=== PATIENT | male | born 1940 | race Caucasian/White ===

== ENCOUNTER 2018-09-10 10:05 | Inpatient (IN) ==
[2018-09-10] MEDS ORDERED: Acetaminophen 325 MG TABLET PO PRN (13:43)
[2018-09-10] MEDS ORDERED: *HR* HYDROcodone/Acet 5/325 mg TABLET PO PRN (13:43)
[2018-09-10] MEDS ORDERED: Naloxone 0.4 MG/ML INJ IVP PRN (13:43)
[2018-09-10] MEDS: *HR* OxyCODONE Immed Rel 5 MG TABLET PO PRN ×2 (14:03→19:50)
--- NOTE | 2018-09-10 15:29 | Orthopedic Consult Note ---
Date of Encounter: 09/10/18 Time of Encounter: 15:00 Assessment and Plan (1) Dislocation of left shoulder joint Current Visit: Yes Status: Acute Patient had significant trauma to left shoulder; with recurrent left shoulder dislocation, s/p Left shoulder closed reduction with Both conservative and surgical options discussed. Both risks and benefits of both discussed. Ultimately, without surgical intervention; patient would likely have recurrent shoulder instability. Patient would like to proceed with surgical treatment Plan for OR with - MONDAY, No - Left Total shoulder reverse ball and socket. Consent reviewed and discussed with patient; patient signed. Risks and benefits discussed. Hospitalist for pre-op risk stratification. NPO after midnight CHG bathe [employer]. Qualifiers: Encounter type: initial encounter Qualified Code(s): S43.005A - Unspecified dislocation of left shoulder joint, initial encounter History of Present Illness Chief complaint: Left Recurrent shoulder dislocation HPI: Mr. Hill is a 78 year old male, transferred from [facility] for recurrent left shoulder dislocation. Patient fell approx 1 week ago, was seen in [facility] by , who as able to do a closed reduction under light sedation, with successful reduction of shoulder joint. Today, he presented to [facility] ED for worsening of left shoulder pain. XRAYS reviewed recurrent dislocated left shoulder. He denies N/T, denies radiation of pain, or forearm pain. Pain 8/10, along deltoid and anterior shoulder. Obvious deformity noted. No ecchymosis, erythema or abrasions. No repeat trauma or falls. No new symptoms. Exam: Left shoulder Obvious deformity noted; no ecchymosis, erythema or abrasion. No warmth Tenderness to anterior shoulder, sensation intact. Deltoid atrophy noted. ROM limited at shoulder; elbow ROM intact, hand and wrist ROM intact; digital ROM intact. 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 Past Med Surg Social Fam HX - Past Medical History Medical history: CVA, GERD, hypertension - Past Surgical History Additional surgical history: 09/04/18ROTATOR CUFF SURGERY. PREVIOUS DISLOCATION OF LEFT SHOULDER 09/04/18 - Social History Smoking Status: Never smoker Smokeless Tobacco Status: No Alcohol use: none Drug use: none - Family History Mother Hx Family Cardiac Disorders: Yes Hx Family Endocrine Disorder: Yes Medications and Allergies Aspirin 81 mg PO DAILY 09/10/18 [History] Atorvastatin [Lipitor] 40 mg PO HS 09/10/18 [History] Clopidogrel [Plavix] 75 mg PO DAILY 09/10/18 [History] Cyanocobalamin (Vitamin B-12) [Vitamin B12] 1,000 mcg PO DAILY 09/10/18 [History] raNITIdine HCl [Ranitidine HCl] 300 mg PO DAILY 09/10/18 [History] Allergy/AdvReac Type Severity Reaction Status Date / Time No Known Drug Allergies AdvReac none Verified 09/10/18 12:59 All Systems Reviewed: The remainder of the systems were reviewed and are negative - Constitutional Constitutional: as per HPI, weakness, no fever(s), no frequent falls, no headache(s) - Cardiovascular Cardiovascular: no chest pain, no syncope - Musculoskeletal Musculoskeletal: as per HPI, limited range of motion, no abnormal gait, no joint swelling, no numbness, no radiating pain into limb, no tingling Physical Exam - Constitutional Vitals: Temp Pulse Resp BP Pulse Ox 97.7 F 85 15 152/97 95 09/10/18 12:43 09/10/18 12:43 09/10/18 12:43 09/10/18 12:43 09/10/18 12:43 General appearance IM: mild distress, A&O X 3, answers questions appropriately Results - Labs Result Diagrams: 09/11/18 06:10 09/11/18 06:10 Labs: All other labs normal. - Diagnostic results Shoulder x-ray: report reviewed, image reviewed Consult Discharge Plan - Plan Referrals: Ange Canela MD [Primary Care Provider] -
--- NOTE | 2018-09-10 15:51 | Internal Med History&Physical ---
Date of Encounter: 09/10/18 Time of Encounter: 15:51 Internal Medicine - H&P: HPI Chief complaint: Left shoulder dislocation Admitted From: Emergency Dept Plans for Post Hospital Care: Home History of present illness: Mr. Hill is a 78 year old male patient with history of hypertension, hyperlipidemia, prior stroke who presented to the ER at [place] with complaints of acute left shoulder dislocation. His symptoms again early this morning when he rolled in his bed. He had fallen last week while walking his dog and had dislocated his shoulder. After failed attempts to put it in place in the ER, patient was taken to the or and closed reduction was successful then. He was discharged home and has been doing well until his episode this morning. Patient reports intense pain in his left shoulder. With decreased range of motion. No weakness or numbness. Patient has previously undergone shoulder repair/rotator cuff surgery several years back on the left shoulder. At baseline, patient is able to ambulate for a blocked easily. He does get short of breath when he climbs a flight of stairs. Does have chronic right lower extremity edema. Denies any orthopnea or PND. No chest pain. Past Med Surg Social Fam HX - Past Medical History Attestation: Yes The following information was validated with the patient. Source: patient Medical history: CVA, GERD, hypertension - Past Surgical History Additional surgical history: 09/04/18ROTATOR CUFF SURGERY. PREVIOUS DISLOCATION OF LEFT SHOULDER 09/04/18 - Social History Smoking Status: Never smoker Smokeless Tobacco Status: No Alcohol use: none Drug use: none - Family History Mother Hx Family Cardiac Disorders: Yes Hx Family Endocrine Disorder: Yes Internal Medicine - H&P: Meds Allergy/AdvReac Type Severity Reaction Status Date / Time No Known Drug Allergies AdvReac none Verified 09/10/18 12:59 All Systems PM: A 10-system review of systems was performed and is negative for pertinent findings except as documented above in the HPI. - Constitutional Constitutional: no chills, no fever(s), no night sweats - EENT Eyes: no change in vision, no discharge, no pain, no photophobia Ears: no ear discharge, no ear pain, no tinnitus Nose, mouth and throat: no dysphagia, no nasal discharge, no neck pain, no sore throat - Cardiovascular Cardiovascular ROS IM: no chest pain, no diaphoresis, no dyspnea, no lightheadedness, no palpitations, no syncope - Respiratory Respiratory: no cough, no dyspnea, no wheezing, no excessive phlegm production - Gastrointestinal Gastrointestinal: no abdominal pain, no diarrhea, no hematemesis, no hematochezia, no melena, no nausea, no vomiting - Musculoskeletal Musculoskeletal ROS IM: other (left shoulder pain), no numbness, no tingling - Integumentary Integumentary IM: no rash, no unusual bruising - Neurological Neurological ROS: no confusion, no convulsions, no focal weakness, no numbness, no tingling, no tremor(s) - Hematologic/Lymphatic Hematologic/Lymphatic: no easy bruising - Constitutional Vitals: Temp Pulse Resp BP Pulse Ox 97.7 F 85 15 152/97 95 09/10/18 12:43 09/10/18 12:43 09/10/18 12:43 09/10/18 12:43 09/10/18 12:43 General appearance: Present: cooperative, A&O X 3, pleasant, answers questions appropriately Exam: moderate distress due to pain - Eye Eye exam: Present: EOMI, PERRL, conjuntiva pink, sclera anicteric - Neck Neck exam general surgery: Present: supple, trachea midline. Absent: lymphadenopathy - Respiratory Respiratory exam: Present: CTAB. Absent: accessory muscle use, rales, rhonchi, wheezes - Cardiovascular Cardiovascular exam: Present: RRR, +S1, +S2. Absent: diastolic murmur, gallop, rubs, systolic murmur - GI/Abdominal GI/Abdominal exam: Present: normal bowel sounds, soft, no peritoneal signs. Absent: distended, tenderness - Extremities Exam Extremities exam: Present: tenderness (left shoulder pain and decreased range of motion.), warm, radial pulses palpable and symmetrical. Absent: calf tenderness, cyanotic, pedal edema - Neurological Exam Neurological exam: Present: alert, oriented X3, no focal deficits. Absent: facial droop, speech deficit - Skin Skin exam: Present: dry, intact - Assessment and plan (1) Dislocation of left shoulder joint Current Visit: Yes Status: Acute Assessment and plan: Acute left shoulder dislocation. Following closed reduction last week. Will most likely need surgical management at this time. Consult orthopedic surgery. Patient is at low to intermediate risk for complications from surgery. Will obtain EKG and chest x-ray. Qualifiers: Encounter type: initial encounter Qualified Code(s): S43.005A - Unspecified dislocation of left shoulder joint, initial encounter (2) Essential hypertension Current Visit: Yes Status: Chronic Assessment and plan: Continue home medications. Monitor blood pressure closely. (3) Hyperlipidemia Current Visit: Yes Status: Chronic Assessment and plan: Continue statin. Qualifiers: Hyperlipidemia type: mixed hyperlipidemia Qualified Code(s): E78.2 - Mixed hyperlipidemia - Time Spent With Patient Total time spent is greater than 50% in coordination of care (as documented) at patient's floor/unit and/or counseling patient:
[2018-09-10 16:18] LABS: Basophils % 0.4 %; Eosinophils % 0.1 %; Hematocrit 43.2 % (37.5-50.1); Hemoglobin 14.6 g/dL (12.9-16.9); Immature Granulocytes % 0.4 % (0-4); Lymphocytes # 0.9 K/mcL (0.6-4.6); Lymphocytes % 9.2 %; Mean Corpuscular HGB Conc 33.8 g/dL (31.6-35.5); Mean Corpuscular Hemoglobin 30.7 pg (28.0-33.3); Mean Corpuscular Volume 90.8 fL (83.0-100.0); Monocytes # 0.4 K/mcL (0.0-1.3); Monocytes % 4.1 %; Neutrophils # 8.3 K/mcL (1.6-8.9); Platelet Count 238 K/mcL (140-400); Red Blood Count 4.76 M/mcL (4.19-5.50); Segmented Neutrophils % 85.8 %
[2018-09-10 16:37] LABS: BUN/Creatinine Ratio 20 (6-26); Blood Urea Nitrogen 19 mg/dL (8-23); Calcium 9.2 mg/dL (8.6-10.3); Carbon Dioxide 25 mEq/L (23-29); Chloride 105 mEq/L (98-107); Glucose 161 mg/dL (70-105); Osmolality,Calculated 292 (280-300); Potassium 4.3 mEq/L (3.5-5.1); Sodium 138 mEq/L (136-145); eGFR For Non-African Americans > 60 (> 60)
[2018-09-10 17:03] LABS: INR 1.2; Prothrombin Time 13.3 Seconds (9.4-12.1)
--- NOTE | 2018-09-10 19:07 | Anesthesia Evaluation PreOp ---
Date of Encounter: 09/10/18 Time of Encounter: 21:27 - Past History Planned Operation: Left total shoulder (left shoulder dislocation) Cardiac History: HTN, Hyperlipidemia Pulmonary History: Denies Any Significant HX ADDRESSER History: CVA (occurred in 2017; residual memory deficits; no motor deficits) Other Medical History: GERD Anesthesia History: Past Anesthesia (left shoulder (long time ago), hip surgery, hernia repair, prostate surgery), Problems (unable to urinate after one of his surgeries) Alcohol Use: none Drug use: none Medications and Allergies Aspirin 81 mg PO DAILY 09/10/18 [History] Atorvastatin [Lipitor] 40 mg PO HS 09/10/18 [History] Clopidogrel [Plavix] 75 mg PO DAILY 09/10/18 [History] Cyanocobalamin (Vitamin B-12) [Vitamin B12] 1,000 mcg PO DAILY 09/10/18 [H istory] raNITIdine HCl [Ranitidine HCl] 300 mg PO DAILY 09/10/18 [History] Allergy/AdvReac Type Severity Reaction Status Date / Time No Known Drug Allergies AdvReac none Verified 09/10/18 12:59 - Meds/Allergy Pre-op Review Medications Reviewed: Yes Allergies Reviewed: Yes Beta Blockers on Current Med List: No Anesthesia Results - Labs 09/10/18 16:04 09/10/18 16:04 Anesthesia Exam Last Vital Signs Temp 98.3 F 09/10/18 18:44 Pulse 81 09/10/18 18:44 Resp 17 09/10/18 18:44 BP 131/86 09/10/18 18:44 Pulse Ox 91 09/10/18 18:44 Weight: 108 kg - HEENT Pupil (Motor): Pupils equal, EOMI Mallampati: II Teeth: Missing Denture Type: Upper: Complete Oral Opening: Greater than 3 - ADDRESSER LOC: Oriented - Cardiac Rhythm: Regular Murmur: None - Pulmonary Breath Sounds: bilateral Clear Respiratory Effort: Symmetrical Anesthesia Assess/Plan ASA Score: 2 Level of consciousness: Cooperative Anesthetic Plan: General, Regional Nerve Block Regional Nerve Block Plan: Supraclavicular Monitoring Plan: Standard Monitors Recovery Plan: PACU
[2018-09-11 06:25] LABS: Basophils % 0.5 %; Eosinophils # 0.2 K/mcL (0.0-0.6); Eosinophils % 2.4 %; Hematocrit 46.4 % (37.5-50.1); Hemoglobin 15.2 g/dL (12.9-16.9); Immature Granulocytes % 0.4 % (0-4); Lymphocytes # 0.9 K/mcL (0.6-4.6); Lymphocytes % 12.5 %; Mean Corpuscular HGB Conc 32.8 g/dL (31.6-35.5); Mean Corpuscular Hemoglobin 30.6 pg (28.0-33.3); Mean Corpuscular Volume 93.4 fL (83.0-100.0); Monocytes # 0.5 K/mcL (0.0-1.3); Monocytes % 6.4 %; Neutrophils # 5.8 K/mcL (1.6-8.9); Platelet Count 170 K/mcL (140-400); Red Blood Count 4.97 M/mcL (4.19-5.50); Red Cell Distribution Width 13.2 % (11.5-14.5); Segmented Neutrophils % 77.8 %
[2018-09-11] MEDS: *HR* OxyCODONE Immed Rel 5 MG TABLET PO PRN (06:37)
[2018-09-11 06:44] LABS: BUN/Creatinine Ratio 18 (6-26); Blood Urea Nitrogen 17 mg/dL (8-23); Calcium 9.3 mg/dL (8.6-10.3); Carbon Dioxide 23 mEq/L (23-29); Chloride 106 mEq/L (98-107); Glucose 105 mg/dL (70-105); Osmolality,Calculated 288 (280-300); Potassium 4.4 mEq/L (3.5-5.1); Sodium 138 mEq/L (136-145); eGFR For Non-African Americans > 60 (> 60)
[2018-09-11 07:14] LABS: Platelet Estimate Normal (Normal)
--- NOTE | 2018-09-11 08:11 | Orthopedics Progress Note ---
Date of Encounter: 09/11/18 Time of Encounter: 08:10 Subjective Interval history: Patient seen this morning, status post closed reduction of left shoulder dislocation last week. Patient required reduction in the operating room. Patient redislocated shoulder yesterday patient is admitted for definitive management. Based on the patient's diagnosis age recurrent instability recommendations for reverse shoulder replacement. Social situation. We reviewed the risks and bene fits as well as recovery. All questions were answered. The patient agreed to this treatment plan and acknowledged an understanding of the treatment plan as described. Objective Vital signs: Vital Signs Temp Pulse Resp BP Pulse Ox 09/11/18 07:13 97.7 F 84 14 156/103 95 09/11/18 04:22 98.4 F 69 16 126/77 92 09/10/18 23:05 98.3 F 71 17 133/83 91 09/10/18 18:44 98.3 F 81 17 131/86 91 09/10/18 12:43 97.7 F 85 15 152/97 95 Intake and Output 09/10/18 09/11/18 09/11/18 23:59 07:59 15:59 Intake Total 240 / 240 Balance 240 / 240 Intake: Oral 240 / 240 Other: Meal Dinner Percent of Meal Consumed 85% Weight 107.7 kg Patient Weight 09/11/18 23:59 Weight 107.7 kg - Labs CBC & BMP: 09/11/18 06:10 09/11/18 06:10 Labs: Abnormal lab results PT 13.3 Seconds (9.4-12.1) H 09/10/18 15:05 Consult Discharge Plan - Plan Referrals: Ange Canela MD [Primary Care Provider] -
[2018-09-11] MEDS ORDERED: CeFAZolin Syr 2,000MG/20 ML 2,000 MG/20 ML SYRINGE IVPB ONE (10:51)
[2018-09-11] MEDS ORDERED: ROPIVACAINE HCL/PF 0.5% 30 ML VIAL ONE (11:11)
[2018-09-11] MEDS ORDERED: Bupivacaine-MPF 0.25% 10 ML VIAL ONE (11:11)
[2018-09-11] MEDS ORDERED: Ethanol\\Acetic Acid\\Na Ace\\Ben 1,000 ML IRRIG.SOLN IR ONE (11:38)
[2018-09-11] MEDS ORDERED: EPHEDrine 50 MG/ML VIAL ONE (12:35)
[2018-09-11] MEDS ORDERED: Lidocaine -MPF 4% 5 ML AMPUL ONE ×2 (12:35→13:30)
[2018-09-11] MEDS ORDERED: Ondansetron 4 MG/2 ML VIAL ONE (12:35)
[2018-09-11] MEDS ORDERED: *HR* Succinylcholine 200 MG/10 ML VIAL IVP ONE ×3 (12:35→13:30)
[2018-09-11] MEDS ORDERED: Dexamethasone 4 MG/ML VIAL ONE (12:35)
[2018-09-11] MEDS ORDERED: *HR* FentaNYL (PF) 100 MCG/2 ML VIAL ONE ×2 (12:35)
[2018-09-11] MEDS ORDERED: Lidocaine -MPF 2% 2 ML VIAL ONE (12:35)
[2018-09-11] MEDS ORDERED: *HR* Propofol 200 MG/20 ML VIAL IVP ONE (12:35)
--- NOTE | 2018-09-11 12:38 | Anesthesia Procedures ---
Date of Encounter: 09/11/18 Time of Encounter: 11:30 Procedures: Anesthesia - Nerve Block Procedure Date: 09/11/18 Time: 11:30 Allergies/Adv Reactions: nka Surgical Procedure: left reverse tsr Checklist: Correct Patient Identifier, Correct procedure, History checked Correct side: Left Blood Thinner: No Monitor Applied: EKG, BP, Pulse Oximetry Supplemental Oxygen via Nasal Cannula (L/min): 2 Sedation: Fentanyl (mcg): 100 Indication: Post Op Analgesia (per dr. soto) Pre-op Neuro Deficits: No Block Type: Supraclavicular, Other (scp, icb) Catheter placed: No Sterile Technique: Yes Ultrasound used: Yes Anatomy identified: Yes Visual spread of Local: Yes Neuro Stimulation: No Blood on Needle Aspiration: No Smooth Injection of Local: Yes Pain with Injection of Local: No Prep: Chlorhexadine Needle: 22 x 50 mm Stimuplex Local: Ropivacaine (30cc 0.5% with 8mg decadron for suprclav), Other (5/5 cc 0.25% bupivicaine for scp, icb with 2/2 mg decadron) Volume (cc): 30, 5, 5 Number of Attempts: 1 Complications: None/effective block Vitals: Vital Signs/O2 Sat/Glucose, Most Recent Temp Pulse Resp BP Pulse Ox 97.7 F 81 14 144/95 96 09/11/18 07:13 09/11/18 11:48 09/11/18 07:13 09/11/18 11:48 09/11/18 11:48 Comments: [facility]
--- NOTE | 2018-09-11 12:55 | Orthopedic Operative Note ---
Date of procedure: 09/11/18 Pre-op diagnosis: Recurrent dislocation left shoulder Post-op diagnosis: same Procedure: Procedure: Total Shoulder Replacment Reverse, left Estimated blood loss: 100 cc Hardware: Metal and polyethylene replacement: Arthrex 28, +4 , 35 mm screw glenoid baseplate, 4 locking 5.5 screw, 42+4 glenosphere, 12 apex humeral stem, poly insert 6 metal 3 Angelic Exam Under anesthesia: Shoulder was dislocated easily reducible persistently unstable Procedural Notes: Massive rotator cuff tear Operative procedure: The patient was brought to the operating room and placed on the operating room table. After general anesthesia was administered the operative shoulder was examined. Findings were noted. The patient was placed in the modified beachchair position. All pressure points were padded appropriately. And the head was stabilized in the neutral position. The operative extremity was prepped and draped in the sterile surgical fashion. The patient received IV antibiotics prior to skin incision. A standard deltopectoral approach was made to the operative shoulder. Incision was made to the skin and subcutaneous tissue,hemo stasis was obtained with Bovie cautery. Using careful blunt dissection the cephalic vein was identified and mobilized medially. The deltopectoral interval was developed and the clavipectoral fascia was incised. The subscap was released off the lesser tuberosity and tagged with #2 FiberWire suture subscap irreparable. The humerus was dislocated patient noted to have irreparable tear supraspinatus tendon, and the humeral cut was made along the anatomic neck. Anterior and posterior Bankart retractors were placed to expose the glenoid. The glenoid guide was seated and the centering hole was made. It was reamed with the appropriate reamer. The 28, +4, 35 mm screw, baseplate was seated and secured with 4 l ocking 5.5 screw. The baseplate was irrigated and dried and the 42+4 Glenosphere was seated and secured with the Weston taper. The Weston taper was tested and found to be secure, glenosphere fixation was secondarily secured with the central screw. The humerus was and prepared with the diaphyseal reamers, followed by a broaching process up to the appropriate size 12 apex in the patient's anatomic version. The metaphyseal reamer was then utilized. Trial reduction found the shoulder to be relocatable. Trial components were removed and 12 apex stem was impacted in place in the patient's anatomic version. Trial reduction found the shoulder to be relocatable and stable with the appropriate 6 metal 3 poly . Trial component was removed and the real implant was seated and secured the shoulder was reduced. The shoulder had excellent motion and excellent stability and no evidence of dislocation. The deep tissue was irrigated with pulse irrigation. The PA close the shoulder. The deltopectoral interval was closed with a running #1 PDS suture, subcutaneous tissue was irrigated and closed with 0 PDS suture, the skin was closed with Dermabond. The patient was placed in a sterile dressing, abduction brace and extubated. The patient was then transferred to the recovery room in stable condition. Anesthesia: GETA Surgeon: Amrik Callaway Was there an accounts payable assistant present: No (Physical examination) Estimated blood loss (cc): 100 Condition: stable Disposition: PACU
[2018-09-11 13:53] LABS: Hematocrit 42.2 % (37.5-50.1); Hemoglobin 13.9 g/dL (12.9-16.9)
--- NOTE | 2018-09-11 13:53 | Anesthesia Evaluation Post Op ---
Date of Encounter: 09/11/18 Time of Encounter: 13:52 - Vital Signs Vital Signs: Vital Signs/O2 Sat/Glucose, Most Recent Temp Pulse Resp BP Pulse Ox 98.6 F 88 16 136/92 94 09/11/18 13:40 09/11/18 13:40 09/11/18 13:40 09/11/18 13:40 09/11/18 13:40 - Lungs Lungs: Clear Ascult./Percussion - Airway Airway: Non-obstructed - Cardiovascular Regular Rate - Mental Status Mental Status: Alert & Oriented, Answers Appropriately - Pain Pain Scale: 0 - Nausea Vomiting Nausea Vomiting: Not Present - Hydration Hydration: Tolerates oral liquids - Discharge PostOp Status: Transfer Patient to floor
[2018-09-11] MEDS ORDERED: Ondansetron 4 MG/2 ML VIAL IVP PRN (14:14)
[2018-09-11] MEDS ORDERED: Sennosides 8.6 MG TABLET PO PRN (14:14)
[2018-09-11] MEDS ORDERED: traMADol 50 MG TABLET PO PRN (14:14)
[2018-09-11] MEDS ORDERED: MOM Conc 10 ML UD.LIQ PO PRN (14:14)
[2018-09-11] MEDS ORDERED: Temazepam 15 MG CAPSULE PO PRN (14:14)
[2018-09-11] MEDS ORDERED: Ringers Solution, Lactated 1,000 ML IVC SCH (14:14)
[2018-09-11] MEDS ORDERED: Naloxone 0.4 MG/ML INJ IVP PRN (14:14)
--- NOTE | 2018-09-11 14:37 | Internal Med Progress Note ---
Hospitalist Progress Note - Encounter Date of Encounter: 09/11/18 Time of Encounter: 09:40 - Subjective Interval History: Patient lying down in bed. Comfortable. Pain in his left shoulder is fairly controlled. Denies any chest pain or palpitations. No nausea or vomiting. Has been nothing by mouth for surgery scheduled today. - Exam Vitals: Temp Pulse Resp BP Pulse Ox 98.6 F 95 16 133/88 94 09/11/18 13:50 09/11/18 13:50 09/11/18 13:50 09/11/18 13:50 09/11/18 13:50 Exam: General: Patient is alert, no acute distress, oriented x 3 ENT: Mucous membranes moist Respiratory: Good respiratory effort. Normal breath sounds. No wheezing or crackles. Cardiovascular: Regular rate and rhythm. s1 and s2 normal No clicks, rubs, gallops, or murmurs. No pedal edema Abdomen: Abdomen is soft, nontender. Bowel sounds are present Musculoskeletal: Left upper extremity in a sling Skin: warm, dry, intact. Neuro: Alert oriented x 3 normal cranial nerves, no focal deficits - Assessment and Plan (1) Dislocation of left shoulder joint Current Visit: Yes Status: Acute Assessment and Plan: Plan for surgery today. Continue supportive care and pain control. PTOT after surgery. (2) Essential hypertension Current Visit: Yes Status: Chronic Assessment and Plan: Resume home medications. Blood pressure is well controlled (3) Hyperlipidemia Current Visit: Yes Status: Chronic Assessment and Plan: Continue statin - Time Spent with Patient Total time spent is greater than 50% in coordination of care (as documented) at patient's floor/unit and/or counseling patient: Internal Medicine: Result - Labs CBC & Chem 7: 09/11/18 13:35 09/11/18 06:10 Labs: Short CBC 09/10/18 09/11/18 09/11/18 Range/Units 16:04 06:10 13:35 WBC 9.7 7.5 (4.3-11.1) K/mcL Hgb 14.6 15.2 13.9 (12.9-16.9) g/dL Hct 43.2 46.4 42.2 (37.5-50.1) % Plt Count 238 170 (140-400) K/mcL Neutrophils # 8.3 5.8 (1.6-8.9) K/mcL BMP 02/11/19 02/12/19 16:04 06:10 Sodium 138 138 Potassium 4.3 4.4 Chloride 105 106 Carbon Dioxide 25 23 BUN 19 17 Creatinine 0.95 0.92 Glucose 161 H 105 Calcium 9.2 9.3 - ABG Interpretation ABG results: PT/INR, D-dimer PT 13.3 Seconds (9.4-12.1) H 09/10/18 15:05 - Impressions Impressions Shoulder X-Ray 09/10/18 15:24 IMPRESSION: Anterior dislocation of the left glenohumeral joint. The findings were sent to the Radiology Results Communication Center at 4:32 pm on 09/10/2018to be communicated to a licensed caregiver. D/ : / 09/10/2018 16:33:18 Rene Garcia MD / josie Interpreting Provider: Rene Garcia MD Chest X-Ray 09/10/18 16:07 IMPRESSION: No acute cardiopulmonary process identified. D/ / 09/10/2018 17:36:29 Paul Rodriguez MD / long Interpreting Provider: Paul Rodriguez MD Consult Discharge Plan - Plan Referrals: Ange Canela MD [Primary Care Provider] - (1) Dislocation of left shoulder joint Qualifiers: Encounter type: initial encounter Qualified Code(s): S43.005A - Unspecified dislocation of left shoulder joint, initial encounter (3) Hyperlipidemia Qualifiers: Hyperlipidemia type: mixed hyperlipidemia Qualified Code(s): E78.2 - Mixed hyperlipidemia
--- NOTE | 2018-09-11 18:44 | Electrocardiograph Report ---
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
[2018-09-11] MEDS: *HR* OxyCODONE/APAP 5/325 TABLET PO PRN (22:40)
[2018-09-12 01:43] LABS: Hematocrit 37.5 % (37.5-50.1); Hemoglobin 12.8 g/dL (12.9-16.9)
[2018-09-12 02:02] LABS: BUN/Creatinine Ratio 19 (6-26); Blood Urea Nitrogen 22 mg/dL (8-23); Calcium 8.6 mg/dL (8.6-10.3); Carbon Dioxide 22 mEq/L (23-29); Chloride 106 mEq/L (98-107); Glucose 187 mg/dL (70-105); Osmolality,Calculated 290 (280-300); Potassium 4.5 mEq/L (3.5-5.1); Sodium 136 mEq/L (136-145); eGFR For Non-African Americans > 60 (> 60)
[2018-09-12] MEDS ORDERED: *HR* Enoxaparin 40 MG/0.4 ML SYRINGE SQ SCH (06:00)
[2018-09-12 07:19] VITALS: BP 114/76
--- NOTE | 2018-09-12 08:25 | Orthopedics Progress Note ---
Date of Encounter: 09/12/18 Time of Encounter: 08:24 Subjective Interval history: Patient was seen this morning doing well without complaints. Afebrile vital signs stable. Operative extremity: Neurovascularly intact Dressing clean dry and intact Calves nontender Assessment and plan: Continue with postoperative care Hematocrit 37 cleared for discharge Objective Vital signs: Vital Signs Temp Pulse Resp BP Pulse Ox 09/12/18 06:45 98.3 F 84 16 114/76 95 09/12/18 03:40 98.1 F 88 17 110/70 94 09/11/18 22:45 98.6 F 91 16 108/72 92 09/11/18 19:07 98.1 F 105 17 110/69 91 09/11/18 17:20 97.9 F 103 16 105/72 94 09/11/18 13:50 98.6 F 95 16 133/88 94 09/11/18 13:40 98.6 F 88 16 136/92 94 09/11/18 13:30 91 16 131/89 93 09/11/18 13:20 90 16 121/78 93 09/11/18 13:10 98.8 F 97 14 126/88 95 09/11/18 11:48 81 144/95 96 09/11/18 11:20 80 166/102 97 Intake and Output 09/11/18 09/12/18 09/12/18 23:59 07:59 15:59 Intake Total 100 / 100 200 / 200 Balance 100 / 100 200 / 200 Intake: IV Fluids 100 / 100 Ancef 2,000 MG In 0.9 % Sodium 100 / 100 Chloride 100 ML @ 200 mls/hr IVPB Q8H [facility] Rx#:[id number] Oral 200 / 200 Other: Weight 107.6 kg Patient Weight 09/12/18 23:59 Weight 107.6 kg - Labs CBC & BMP: 09/12/18 01:19 09/12/18 01:19 Labs: Abnormal lab results Hgb 12.8 g/dL (12.9-16.9) L 09/12/18 01:19 PT 13.3 Seconds (9.4-12.1) H 09/10/18 15:05 Carbon Dioxide 22 mEq/L (23-29) L 09/12/18 01:19 Glucose 187 mg/dL (70-105) H 02/13/19 01:19 Consult Discharge Plan - Plan Referrals: Ange Canela MD [Primary Care Provider] -
[2018-09-12] MEDS ORDERED: Cyanocobalamin (B-12) 1,000 MCG TABLET PO SCH (09:00)
[2018-09-12] MEDS ORDERED: Famotidine 20 MG TABLET PO SCH (09:00)
[2018-09-12] MEDS ORDERED: Aspirin 81 MG TAB.CHEW PO SCH (09:00)
[2018-09-12] MEDS: *HR* OxyCODONE/APAP 5/325 TABLET PO PRN (09:39)
--- NOTE | 2018-09-12 11:00 | Physician Discharge Referral ---
Home Health/Hosp Referral Info Transfer to: Home Health Provider in Charge Post Discharge: PCP - Diagnosis (1) Status post reverse arthroplasty of left shoulder Priority: Primary Status: Acute (2) Dislocation of left shoulder joint Priority: Primary Status: Acute (3) Essential hypertension Priority: Secondary Status: Chronic (4) Hyperlipidemia Priority: Secondary Status: Chronic - Respiratory Orders None Smoking Cessation: Smoking cessation has been advised. For more information, call the [employer] Tobacco Quit Line at 5-822-DHHM-NOW. - Diet/Nutrition Diet/Nutrition Orders: Regular - Activity Activity Orders: Up ad robert, Ambulate - Services Needed Following services are medically necessary services: Nursing, Home Health Aide, Physical Therapy, Occupational Therapy Home Care Orders: Opsite dressing, leave intact until first post-operative visit. Zipline/Mize in place, plan to remove at post-operative day #14-16. If dressing becomes >50% saturated, contact office, remove dressing and place appropriate dressing in its place. Do not allow for dressing to get wet. Shoulder Precautions x 6 weeks. Apply cold therapy wrap 3-6x/day for 20 minutes at a time. Encourage ambulation throughout the day. Use Incentive spirometer 10x/hour. Elevate affected extremity above heart as tolerated. NWB to affected upper extremity x 6 weeks. Will remove brace at first post-operative appointment. OK to remove during PT/OT and Home exercises. Remove pillow to brace on post-operative day #1. - Transfer Medications Home Medications: Aspirin 81 mg PO DAILY 09/10/18 [History] Atorvastatin [Lipitor] 40 mg PO HS 09/10/18 [History] Clopidogrel [Plavix] 75 mg PO DAILY 09/10/18 [History] Cyanocobalamin (Vitamin B-12) [Vitamin B12] 1,000 mcg PO DAILY 09/10/18 [History] raNITIdine HCl [Ranitidine HCl] 300 mg PO DAILY 09/10/18 [History] Allergies/Adverse Reactions: Allergy/AdvReac Type Severity Reaction Status Date / Time No Known Drug Allergies AdvReac none Verified 09/10/18 12:59 Certification: Further, I certify that my clinical findings support that this patient is homebound (i.e. absences from home require considerable and taxing effort and are for medical reasons or restorationism services or infrequently or short duration when for other reasons) because: Homebound Reason: Post-surgery restriction and or conditions limit ability to leave home Attestation: My signature below is to certify that this patient is under my care and that I, or nurse practitioner, or a physician's commercial real estate assistant working with me, has a [id number] encounter with this patient.
[2018-09-12 11:12] LABS: Hematocrit 43.8 % (37.5-50.1)
[2018-09-12 11:15] LABS: Hemoglobin 14.6 g/dL (12.9-16.9)
--- NOTE | 2018-09-12 11:37 | Discharge Summary ---
- NOTES TO OUTPATIENT PROVIDER Notes to Outpatient Provider: Patient was admitted for recurrent left shoulder dislocation and underwent total L reverse shoulder replacement on 09/11 uneventfully. Post-op recovery was unremarkable and is discharged home on POD #1. Orders not resulted at time of discharge: Pending orders 09/11/18 12:56 Surgical Pathology [PTH] Routine 09/13/18 04:00 Basic Metabolic Panel DAILY Hemoglobin and Hematocrit [HEME] DAILY Date of Encounter: 09/12/18 Time of Encounter: 08:15 - Discharge Diagnosis (1) Dislocation of left shoulder joint Priority: Primary Status: Acute Qualifiers: Encounter type: initial encounter Qualified Code(s): S43.005A - Unspecified dislocation of left shoulder joint, initial encounter (2) Essential hypertension Priority: Secondary Status: Chronic (3) Hyperlipidemia Priority: Secondary Status: Chronic Qualifiers: Hyperlipidemia type: mixed hyperlipidemia Qualified Code(s): E78.2 - Mixed hyperlipidemia Hospital course: Mr. Hill is a 78 year old male who was admitted for recurrent left shoulder dislocation and underwent total L reverse shoulder replacement on 2 uneventfully. Post-op recovery was unremarkable and is discharged home on POD #1. Discharge discussed with: patient, family, nurse - Time Spent with Patient Total time spent providing and/or coordinating discharge services: 22 mins - Discharge Medications Prescriptions: OxyCODONE/APAP 5/325 [Percocet 5/325 MG] 1 each PO Q4HR PRN 3 Days #12 tablet PRN Reason: Pain Home Medications: Aspirin 81 mg PO DAILY 09/10/18 [History] Atorvastatin [Lipitor] 40 mg PO HS 09/10/18 [History] Clopidogrel [Plavix] 75 mg PO DAILY 09/10/18 [History] Cyanocobalamin (Vitamin B-12) [Vitamin B12] 1,000 mcg PO DAILY 09/10/18 [History] raNITIdine HCl [Ranitidine HCl] 300 mg PO DAILY 09/10/18 [History] OxyCODONE/APAP 5/325 [Percocet 5/325 MG] 1 each PO Q4HR PRN 3 Days #12 tablet 09/12/18 [Rx] Allergies/Adverse Reactions: Allergy/AdvReac Type Severity Reaction Status Date / Time No Known Drug Allergies AdvReac none Verified 09/10/18 12:59 Date of admission: 09/11/18 09:27 Primary care physician: Ange Canela MD Consults: 09/10/18 16:26 Consult to Orthopedic Surgery [CONS] Routine Consulting Provider: [facility] Reason for Consult: Left shoulder dislocation Time Notified: 16:27 Call Completed: Yes 09/11/18 14:14 Consult to Occupational Therapy [CONS] Routine Comment: post shoulder surgery Reason for Consult: post shoulder surgery Does patient have active BEDREST order?: No Is patient medically & hemodynamically stable?: Yes Consult to Physical Therapy [CONS] Routine Comment: post shoulder surgery Reason for Consult: post shoulder surgery Does patient have active BEDREST order?: No Is patient medically & hemodynamically stable?: Yes Consult to Yeast Supervisor [CONS] Routine Reason for SW Consult: shoulder surgery RT Post Op Consult [CONS] Routine - Constitutional Vitals: Temp Pulse Resp BP Pulse Ox 98.3 F 84 16 114/76 95 09/12/18 06:45 09/12/18 06:45 09/12/18 06:45 09/12/18 06:45 09/12/18 06:45 General appearance: Present: cooperative, A&O X 3, pleasant, answers questions appropriately Exam: General: Patient is alert, no acute distress, oriented x 3 Respiratory: Good respiratory effort. Normal breath sounds. No wheezing or crackles. Cardiovascular: Regular rate and rhythm. s1 and s2 normal No clicks, rubs, gallops, or murmurs. No pedal edema Abdomen: Abdomen is soft, nontender. Bowel sounds are present Musculoskeletal: Left upper extremity in a sling. Neurovascularly intact distally - Patient Status Disposition: Home, Self-Care Condition: Fair Functional capacity at discharge: independent ambulation Overall status at discharge: patient is progressing back to baseline - Discharge Instructions Instructions: Chronic Hypertension (DC) Follow Up With: Ange Canela MD [Primary Care Provider] - Additional Instructions: Outpatient PT/OT - Diet and Activity Activity: resume usual activities as tolerated Diet: low salt diet
== END 2018-09-12 13:05 | disposition home or self-care (01) | DRG 483 ==
LOC: 3NENU → SUATTDRO 12:27
PROVIDERS: ADMIT Internal Medicine; ATTEND Internal Medicine